=== PATIENT | female | born 2000 | race Caucasian/White ===

== ENCOUNTER 2019-08-20 18:06 | Emergency (ER) | payer OTHER ==
[2019-08-20] MEDS ORDERED: ONDANSETRON HCL INJ/PF 4 MG/2 ML SDV IV ONE ×2 (18:20→20:45)
[2019-08-20] MEDS ORDERED: NORMAL SALINE 1000 ML 1,000 ML IV ONE (18:20)
--- NOTE | 2019-08-20 18:22 | ER Document Report ---
ED Medical Screen (RME) - General Chief Complaint: Upper Abdominal Pain Stated Complaint: ABDOMINAL PAIN/8 WEEKS Time Seen by Provider: 08/20/19 18:19 Notes: HPI: 19-year-old female who is approximately 9 weeks by igor hull for evaluation of nausea vomiting and pelvic pain. No vaginal bleeding. Has had vaginal discharge. Has not yet seen JAVA DEVELOPER WITH [employer] for evaluation of the . States throughout the she has been having issues with nausea vomiting states it has been worse in the last 3 days where she is throwing up at least 5 times a day and unable to keep anything down. Patient reports left pelvic pain that began today. I have greeted and performed a rapid initial assessment of this patient. A comprehensive ED assessment and evaluation of the patient, analysis of test results and completion of the medical decision making process will be conducted by additional ED providers PHYSICAL EXAMINATION: Mild tenderness in the left pelvis on palpation. Appears mildly dehydrated and pale. Mildly tachycardic. I have greeted and performed a rapid initial assessment of this patient. A comprehensive ED assessment and evaluation of the patient, analysis of test results and completion of medical decision making process will be conducted by an additional ED providers. - Related Data Allergies/Adverse Reactions: No Known Allergies Allergy (Unverified 08/20/19 18:14) Home Medications: pnv, b6, unasom, escitalopram, trazadone Past Medical History - Social History Chew tobacco use (# tins/day): No Frequency of alcohol use: None Drug Abuse: None Physical Exam - Vital signs Vitals: Temp Pulse Resp BP Pulse Ox 98.7 F 106 H 20 120/70 100 08/20/19 18:08/20/19 18:08/20/19 18:08/20/19 18:08/20/19 18:09 Course - Vital Signs Vital signs: Temp Pulse Resp BP Pulse Ox 98.7 F 106 H 20 120/70 100 08/20/19 18:08/20/19 18:08/20/19 18:08/20/19 18:08/20/19 18:09
[2019-08-20 18:47] LABS: APPEARANCE,URINE SLIGHTLY-CLOUDY; BILIRUBIN,URINE NEGATIVE (NEGATIVE); COLOR,URINE YELLOW; GLUCOSE, URINE NEGATIVE (NEGATIVE); KETONES,URINE 20 mg/dL (NEGATIVE); LEUKOCYTE ESTERASE,URINE NEGATIVE (NEGATIVE); NITRITE,URINE NEGATIVE (NEGATIVE); PROTEIN,URINE 30 mg/dL (NEGATIVE); URINE SPECIFIC GRAVITY 1.021; UROBILINOGEN,URINE NEGATIVE mg/dL (<2.0)
--- NOTE | 2019-08-20 19:14 | ER Document Report ---
Entered by ANA RICHARD SCRIBE 08/20/19 1854 Acting as scribe for:KORTNEY LUONG DO ED GI/ - General Chief Complaint: Upper Abdominal Pain Stated Complaint: ABDOMINAL PAIN/8 WEEKS Time Seen by Provider: 08/20/19 18:19 Mode of Arrival: Ambulatory Information source: Patient Notes: This 19 year old female, G1, P0, approximately x9 weeks presents to the ED today with complaints of nausea/vomiting with associated LUQ pain that started prior to arrival today. Patient also notes left mid-lower back pain. She states that she has been having nausea/vomiting throughout the , but states that it has been worse these last x3 days where she is throwing up at least x5 times a day. She states that she is unable to keep anything down and th at she vomited x2 more times en route to the ED. She reports that she was advised to come to the ED if she had abdominal pain worse on one side, so she decided to come to the ED. She hasn't been seen by FUNERAL ARRANGEMENT DIRECTOR for evaluation of the yet, but states that she has an appointment with [facility] on 08/29/19. She denies vaginal bleeding, spotting, cramping, dysuria, or burning with urination. She reports a history of anxiety/depression and a family history of anemia. Denies cardiac history, respiratory history, or thyroid issues. Denies tobacco, ETOH, or recreational drug use. - Related Data Allergies/Adverse Reactions: No Known Allergies Allergy (Unverified 08/20/19 18:14) Home Medications: pnv, b6, unasom, escitalopram, trazadone Past Medical History - General Information source: Patient - Social History Smoking Status: Never Smoker Cigarette use (# per day): No Chew tobacco use (# tins/day): No Smoking Education Provided: No Frequency of alcohol use: None Drug Abuse: None Lives with: Spouse/Significant other Family History: Reviewed & Not Pertinent, Other - Anemia Patient has suicidal ideation: No Patient has homicidal ideation: No Psychiatric Medical History: Reports: Hx Anxiety, Hx Depression Surgical Hx: Negative Review of Systems - Review of Systems Constitutional: No symptoms reported EENT: No symptoms reported Cardiovascular: No symptoms reported Respiratory: No symptoms reported Gastrointestinal: See HPI, Abdominal pain, Nausea, Vomiting Genitourinary: See HPI. denies: Burning, Dysuria Female Genitourinary: See HPI, - approximaltey x9 weeks. denies: Vaginal bleeding Musculoskeletal: See HPI, Back pain Skin: No symptoms reported Hematologic/Lymphatic: No symptoms reported Neurological/Psychological: No symptoms reported -: Yes All other systems reviewed and negative Physical Exam - Vital signs Vitals: Temp Pulse Resp BP Pulse Ox 98.7 F 106 H 20 120/70 100 08/20/19 18:09 08/20/19 18:09 08/20/19 18:09 08/20/19 18:09 08/20/19 18:09 - General General appearance: Alert In distress: None - HEENT Head: Normocephalic, Atraumatic Eyes: Normal Pupils: PERRL Mucous membranes: Dry - Mildly - Respiratory Respiratory status: No respiratory distress Chest status: Nontender Breath sounds: Normal Chest palpation: Normal - Cardiovascular Rhythm: Regular Heart sounds: Normal auscultation Murmur: No Friction rub: No Gallop: None auscultated - Abdominal Inspection: Normal Distension: No distension Bowel sounds: Normal Tenderness: Tender - LUQ tenderness to palpation, Other - Abdomen soft Organomegaly: No organomegaly - Back Back: Tender - Mild paraspinal tenderness to palpation - Extremities General upper extremity: Normal inspection General lower extremity: Normal inspection - Neurological Neuro grossly intact: Yes - Psychological Associated symptoms: Normal affect, Normal mood - Skin Skin Temperature: Warm Skin Moisture: Dry Skin Color: Normal Course - Re-evaluation Re-evalutation: 08/21/19 00:37 MDM 19 year old primagravida is here with lower abd pain and nausea and vomiting. Feels better here after ivf and zofran. She has fu with OB 08/28. She'd like to have pelvic there rather than here. Discussed pelvic rest and keeping follow up and she expressed understanidng. - Vital Signs Vital signs: Temp Pulse Resp BP Pulse Ox 98.7 F 106 H 20 120/70 100 08/20/19 18:09 08/20/19 18:09 08/20/19 18:09 08/20/19 18:09 08/20/19 18:09 - Laboratory Result Diagrams: 08/20/19 21:52 08/20/19 21:52 Laboratory results interpreted by me: 04/08/20/19 08/20/19 18:21 21:52 21:52 Hgb 9.9 L Hct 31.1 L MCV 65 L MCH 20.7 L MCHC 31.8 L RDW 18.1 H Band Neutrophils % 1 L Sodium 135.3 L Creatinine 0.42 L Beta HCG, Quant 304504.00 H Urine Protein 30 H Urine Ketones 20 H - Diagnostic Test Radiology reviewed: Reports reviewed Discharge - Discharge Clinical Impression: Early stage of Anemia Qualifiers: Anemia type: iron deficiency Iron deficiency anemia type: unspecified iron deficiency Qualified Code(s): D50.9 - Iron deficiency anemia, unspecified Condition: Good Disposition: HOME, SELF-CARE Instructions: Pelvic Pain in ([facility]), ([facility]) Additional Instructions: Keep your follow up appointment 08/28. Continue the vitamins. Return here for any problems or concerns. Take tylenol as needed for pain. Pelvic rest - no sexual intercourse until your ob visit and they say that it is ok. Take the anti nausea medicine as needed for nausea. Prescriptions: Ondansetron [Zofran Odt 4 mg Tablet] 1 - 2 tab PO Q4H PRN #15 tab.rapdis PRN Reason: For Nausea/Vomiting I personally performed the services described in the documentation, reviewed and edited the documentation which was dictated to the scribe in my presence, and it accurately records my words and actions.
--- NOTE | 2019-08-20 19:56 | RADIOLOGY REPORT (SQ) ---
EXAM DESCRIPTION: U/S OB TRANSVAG W/DOPPLER IMAGES COMPLETED DATE/TIME: 08/20/2019 6:31 pm REASON FOR STUDY: left pelvic pain. . LMP 06/22/2019. COMPARISON: None. TECHNIQUE: Transabdominal and transvaginal static and realtime grayscale images acquired of the pelv is. Additional selected spectral and color Doppler images recorded. All images stored on PACs. bHCG: Pending CLINICAL DATES: Estimated date of delivery based on LMP 03/28/2020. Estimated gestational age based on LMP 8 weeks 3 days. LIMITATIONS: None. FINDINGS: FETUS: Single Living intrauterine . ULTRASOUND EGA: 9 weeks 2 days ULTRASOUND MARIJA: 03/22/2020 EFW: Not applicable less than 20 weeks. CRL: 2.6 cm FHR: 173 beats per minute. SURVEY: No visualized anomalies. AMNIOTIC FLUID: Adequate amount. PLACENTA: Not yet developed due to early gestation. SUBCHORIONIC BLEED: Small subchorionic hemorrhage along the inferior margin. SIZE OF BLEED: Small UTERUS: No masses. No anomalies. CERVICAL LENGTH: 2.2 cm Closed. RIGHT ADNEXA: Normal ovary with normal vascular flow. No adnexal free fluid. No adnexal masses. LEFT ADNEXA: Normal ovary with normal vascular flow. No adnexal free fluid. No adnexal masses. FREE FLUID: None. OTHER: There is an oval cystic structure along the left side of the gestational sac with a small echo genic border which may represent an involuting 2nd gestational sac or possibly continuation of the ad jacent subchorionic hemorrhage. IMPRESSION: 1. Single live intrauterine . EGA 9 weeks 2 days 2. Small subchorionic hemorrhage. 3. Small cystic structure adjacent to the subchorionic hemorrhage and to the left of the existing ges tational sac may represent an involuting 2nd gestational sac or possibly continuation with the adjace nt subchorionic hemorrhage. Attention on follow-up imaging recommended. Trimester of : First trimester - 0 to 13 weeks. TECHNICAL DOCUMENTATION: JOB ID: [id number] [employer]- All Rights Reserved rev-09/23 Reading location - IP/workstation name: [email or web address]
[2019-08-20 22:17] LABS: HEMATOCRIT 31.1 % (36.0-47.0); HEMOGLOBIN 9.9 g/dL (12.0-15.5); MEAN CORPUSCULAR HEMOGLOBIN 20.7 pg (27.0-33.4); MEAN CORPUSCULAR HGB CONC 31.8 g/dL (32.0-36.0); MEAN CORPUSCULAR VOLUME 65 fl (80-97); PLATELET COUNT 151 10^3/uL (150-450); RED BLOOD COUNT 4.77 10^6/uL (3.72-5.28); RED CELL DISTRIBUTION WIDTH 18.1 % (11.5-14.0); WHITE BLOOD COUNT 8.2 10^3/uL (4.0-10.5)
[2019-08-20 22:30] LABS: ALBUMIN 3.8 g/dL (3.5-5.0); ALKALINE PHOSPHATASE 49 U/L (38-126); ANION GAP 6 (5-19); ASPARTATE AMINO TRANSFERASE 23 U/L (14-36); BILIRUBIN,TOTAL 0.5 mg/dL (0.2-1.3); BLOOD UREA NITROGEN 8 mg/dL (7-20); CALCIUM 8.9 mg/dL (8.4-10.2); CARBON DIOXIDE 22 mmol/L (22-30); CHLORIDE 107 mmol/L (98-107); GLUCOSE 107 mg/dL (75-110); POTASSIUM 3.8 mmol/L (3.6-5.0); TOTAL PROTEIN 6.6 g/dL (6.3-8.2)
[2019-08-20 22:52] LABS: ABSOLUTE LYMPHOCYTES# (MANUAL) 1.6 10^3/uL (0.5-4.7); ABSOLUTE MONOCYTES # (MANUAL) 0.4 10^3/uL (0.1-1.4); BAND NEUTROPHILS % (MANUAL) 1 % (3-5); BASOPHILS % (MANUAL) 0 % (0-2); EOSINOPHILS % (MANUAL) 3 % (0-6); LYMPHOCYTES % (MANUAL) 19 % (13-45); MONOCYTES % (MANUAL) 5 % (3-13); SEGMENTED NEUTROPHILS % (MAN) 72 % (42-78); TOTAL CELLS COUNTED 100
[2019-08-20 23:02] LABS: ANISOCYTOSIS 2+; OVALOCYTES 1+
[2019-08-20 23:03] LABS: HYPOCHROMASIA 3+; PLATELET COMMENT DECREASED; POLYCHROMASIA SLIGHT
[2019-08-20 23:10] LABS: SCHISTOCYTES SLIGHT
[2019-08-21 01:07] VITALS: BP 111/51
== END 2019-08-21 01:07 | disposition home or self-care (01) ==
LOC: ER 18:06
DX: O99.011 Anemia complicating pregnancy, first trimester (principal); O21.9 Vomiting of pregnancy, unspecified; O26.891 Other specified pregnancy related conditions, first trimester; R10.10 Upper abdominal pain, unspecified; M54.5 Low back pain; Z3A.08 8 weeks gestation of pregnancy; Z79.899 Other long term (current) drug therapy
CPT/HCPCS: 99284; 96361; 96374; 86900; 86901; 36415; 84702; 85025; 80053; 81001; 76817; 93976; J2405; J7030

== ENCOUNTER 2019-10-31 19:01 | Emergency (ER) | payer OTHER ==
[2019-10-31 19:14] VITALS: BP 113/52
[2019-10-31] MEDS ORDERED: ONDANSETRON HCL INJ/PF 4 MG/2 ML SDV IV ONE (21:03)
[2019-10-31] MEDS ORDERED: NORMAL SALINE 1000 ML 1,000 ML IV ONE (21:04)
[2019-10-31] MEDS ORDERED: FAMOTIDINE INJ/PF 20 MG/2 ML SDV IV ONE (21:04)
--- NOTE | 2019-10-31 21:07 | ER Document Report ---
ED General - General Chief Complaint: Chest Pain Stated Complaint: CHEST PAIN/SHORTNESS OF BREATH/VOMITING WITH BLOOD Time Seen by Provider: 10/31/19 20:21 Mode of Arrival: Ambulatory Information source: Patient TRAVEL OUTSIDE OF THE [place] IN LAST 30 DAYS: No - HPI Onset: Other - over the last several days Onset/Duration: Gradual Quality of pain: Burning Severity: Moderate Pain Level: 4 Associated symptoms: Nausea, Vomiting, Shortness of breath, Other - Abdominal Pain Exacerbated by: Other - Throwing up makes the chest pain worse Relieved by: Denies Similar symptoms previously: No Recently seen / treated by doctor: No Notes: 19 year old female who is 19 weeks and 4 days here in the ER for chest pains, nausea, vomiting, and abdominal pains for the last several days with mild shortness of breath. The patient was recently seen by her PACKER Doctor who told her these symptoms are typical in . The patient denies any recent fevers, chills, sweats, sick contacts, recent travel. The patient has not tried any over the counter medications. - Related Data Allergies/Adverse Reactions: No Known Allergies Allergy (Unverified 08/20/19 18:14) Past Medical History - General Information source: Patient - Social History Smoking Status: Never Smoker Frequency of alcohol use: None Drug Abuse: None Family History: Reviewed & Not Pertinent, Other - Anemia Patient has suicidal ideation: No Patient has homicidal ideation: No Psychiatric Medical History: Reports: Hx Anxiety, Hx Depression Review of Systems - Review of Systems Constitutional: No symptoms reported EENT: No symptoms reported Cardiovascular: Chest pain Respiratory: No symptoms reported Gastrointestinal: Abdominal pain, Nausea, Vomiting Genitourinary: No symptoms reported Female Genitourinary: No symptoms reported Musculoskeletal: No symptoms reported Skin: No symptoms reported Hematologic/Lymphatic: No symptoms reported Neurological/Psychological: No symptoms reported -: Yes All other systems reviewed and negative Physical Exam - Vital signs Vitals: Temp Pulse Resp BP Pulse Ox 98.6 F 95 20 113/52 L 100 10/31/19 19:10 10/31/19 19:10 10/31/19 19:10 10/31/19 19:10 10/31/19 19:10 - Notes Notes: GENERAL: Well-appearing, well-nourished and in no acute distress. HEAD: Atraumatic, normocephalic. EYES: Pupils equal round and reactive to light, extraocular movements intact, sclera anicteric, conjunctiva are normal. ENT: External ears normal, nares patent, oropharynx clear without exudates. Moist mucous membranes. NECK: Normal range of motion, supple without lymphadenopathy or JVD. LUNGS: Breath sounds clear to auscultation bilaterally and equal. No wheezes rales or rhonchi. HEART: Regular rate and rhythm without murmurs, rubs or gallops. ABDOMEN: Soft, nontender, normoactive bowel sounds. No guarding, no rebound. No masses appreciated. EXTREMITIES: Normal range of motion, no pitting or edema. No clubbing or cyanosis. NEUROLOGICAL: Cranial nerves II through XII grossly intact. Normal speech, normal gait. PSYCH: Normal mood, normal affect. SKIN: Warm, Dry, normal turgor, no rashes or lesions noted. Course - Re-evaluation Re-evalutation: 11/01/19 05:31 The patient apparently signed out against medical advice after I saw and evaluated her and entered labs for her work up. Nursing staff went over the risks and benefits of signing out AMA with the patient. The patient told nursing staff she would just follow up with her PACKER Doctor. The patient likely is having chest pains and abdominal pains from vomiting so much. My plan was for treatment ofher symptoms and re-evalution of her after labs results and after treatment but the patient signed out AMA. - Vital Signs Vital signs: Temp Pulse Resp BP Pulse Ox 98.6 F 95 20 113/52 L 100 10/31/19 19:10 10/31/19 19:10 10/31/19 19:10 10/31/19 19:10 10/31/19 19:10 Discharge - Discharge Clinical Impression: Chest pain Qualifiers: Chest pain type: unspecified Qualified Code(s): R07.9 - Chest pain, unspecified Nausea & vomiting Qualifiers: Vomiting type: unspecified Vomiting Intractability: unspecified Qualified Code(s): R11.2 - Nausea with vomiting, unspecified Condition: Stable Disposition: AGAINST MEDICAL ADVICE
--- NOTE | 2019-11-01 09:58 | EKG REPORT ---
SEVERITY:- OTHERWISE NORMAL ECG - SINUS TACHYCARDIA : Confirmed by: April Calderon 01-Nov-2019 09:58:25
== END 2019-10-31 21:56 | disposition left against medical advice (07) ==
LOC: ER 19:01
DX: O26.892 Other specified pregnancy related conditions, second trimester (principal); R07.9 Chest pain, unspecified; R06.02 Shortness of breath; R10.9 Unspecified abdominal pain; O99.612 Diseases of the digestive system complicating pregnancy, second trimester; K92.0 Hematemesis; Z3A.19 19 weeks gestation of pregnancy; Z53.29 Procedure and treatment not carried out because of patient's decision for other reasons
CPT/HCPCS: 93005; 93010; 99281

== ENCOUNTER 2020-01-05 19:48 | Outpatient (CLI) | payer OTHER ==
[2020-01-05 20:42] LABS: EPITHELIALS (WET MOUNT) 4+ EPITHELIALS SEEN; RBCS (WET MOUNT) 4+ RBCS SEEN; T.VAGINALIS (WET MOUNT) NO TRICHOMONAS SEEN; WBCS (WET MOUNT) 1+ WBCS SEEN; YEAST (WET MOUNT) NO YEAST SEEN
[2020-01-05 20:46] LABS: APPEARANCE,URINE CLOUDY; BILIRUBIN,URINE NEGATIVE (NEGATIVE); COLOR,URINE YELLOW; GLUCOSE, URINE NEGATIVE (NEGATIVE); KETONES,URINE NEGATIVE (NEGATIVE); LEUKOCYTE ESTERASE,URINE SMALL (NEGATIVE); NITRITE,URINE NEGATIVE (NEGATIVE); PROTEIN,URINE NEGATIVE (NEGATIVE); URINE SPECIFIC GRAVITY 1.015; UROBILINOGEN,URINE NEGATIVE mg/dL (<2.0)
[2020-01-05 21:01] LABS: URINE AMPHETAMINES SCREEN NEGATIVE; URINE BARBITURATES SCREEN NEGATIVE; URINE BENZODIAZEPINES SCREEN NEGATIVE; URINE COCAINE SCREEN NEGATIVE; URINE MARIJUANA (THC) SCREEN NEGATIVE; URINE METHADONE SCREEN NEGATIVE; URINE PHENCYCLIDINE SCREEN NEGATIVE
[2020-01-05 21:22] LABS: BACTERIA (WET MOUNT) 3+ BACTERIA SEEN; EPITHELIALS (WET MOUNT) 4+ EPITHELIALS SEEN; RBCS (WET MOUNT) NO RBCS SEEN; T.VAGINALIS (WET MOUNT) NO TRICHOMONAS SEEN; WBCS (WET MOUNT) 4+ WBCS SEEN; YEAST (WET MOUNT) NO YEAST SEEN
--- NOTE | 2020-01-05 21:54 | RADIOLOGY REPORT (SQ) ---
Obstetric ultrasound: 01/05/2020 8:49 PM CDT HISTORY: 19-year-old female with concern for cervical length. TECHNIQUE: Multiple grayscale and color Doppler images of the pelvis were obtained transabdominally. COMPARISON: Pelvic ultrasound from 08/20/2019 FINDINGS: A single intrauterine gestation is seen, which is cephalic in position. The cervix measures at least 2.9 cm in length. The placenta is anterior in location, and free of internal os of the cervix. The estimated heart rate is approximately 130 bpm. The SOPHIE measures 16.6 cm, with the deepest vertical pocket of approximately 4.9 cm. The following measurements were obtained: BPD: 7.5 cm, consistent with 30 weeks and 0 day(s). HC: 27.9 cm, consistent with 30 weeks and 3 day(s). AC: 27.0 cm, consistent with 31 weeks and 0 day(s). FL: 5.5 cm, consistent with 29 weeks and 1 day(s). The estimated weight is approximately 1553 g +/- 15%. The fetus overall measures at the 65%. The fetus measures at 30 weeks and 1 day(s) by AUA, consistent with an estimated due date of 03/14/20. This is different than the prior estimated due date of 03/22/2020 IMPRESSION: A single, live intrauterine gestation is seen which is currently cephalic in position. The fetus measures at 30 weeks and 1 day(s) by AUA, consistent with an estimated due date of 03/14/20. 2.Detailed anatomic assessment was not performed. 3. The cervix measures at least 2.9 cm in length. Interval follow-up with an obstetric care provider is recommended.
[2020-01-05] MEDS ORDERED: METRONIDAZOLE 500 MG TABLET PO ONE (21:58)
[2020-01-05] MEDS ORDERED: METRONIDAZOLE 500 MG TABLET ONE (22:02)
== END 2020-01-05 22:14 | disposition home or self-care (01) ==
LOC: LC 19:48
PROVIDERS: ATTEND Obstetrics & Gynecology
DX: O23.593 Infection of other part of genital tract in pregnancy, third trimester (principal); B96.89 Other specified bacterial agents as the cause of diseases classified elsewhere; Z3A.29 29 weeks gestation of pregnancy
CPT/HCPCS: 76815; 80307; 81001; 87210

== ENCOUNTER 2020-01-17 17:22 | Outpatient (CLI) | payer OTHER ==
[2020-01-17] MEDS ORDERED: HYDROXYZINE PAMOATE 50 MG CAPSULE PO ONE (18:08)
[2020-01-17] MEDS ORDERED: HYDROXYZINE PAMOATE 50 MG CAPSULE ONE (18:10)
[2020-01-17 18:45] LABS: APPEARANCE,URINE SLIGHTLY-CLOUDY; BILIRUBIN,URINE NEGATIVE (NEGATIVE); COLOR,URINE YELLOW; GLUCOSE, URINE NEGATIVE (NEGATIVE); KETONES,URINE NEGATIVE (NEGATIVE); LEUKOCYTE ESTERASE,URINE TRACE (NEGATIVE); NITRITE,URINE NEGATIVE (NEGATIVE); PROTEIN,URINE NEGATIVE (NEGATIVE); URINE SPECIFIC GRAVITY 1.018; UROBILINOGEN,URINE NEGATIVE mg/dL (<2.0)
[2020-01-17 18:51] LABS: URINE AMPHETAMINES SCREEN NEGATIVE; URINE BARBITURATES SCREEN NEGATIVE; URINE BENZODIAZEPINES SCREEN NEGATIVE; URINE COCAINE SCREEN NEGATIVE; URINE MARIJUANA (THC) SCREEN NEGATIVE; URINE METHADONE SCREEN NEGATIVE; URINE PHENCYCLIDINE SCREEN NEGATIVE
== END 2020-01-17 18:15 | disposition home or self-care (01) ==
LOC: LC 17:22
PROVIDERS: ATTEND Obstetrics & Gynecology Gynecology
DX: O26.893 Other specified pregnancy related conditions, third trimester (principal); R10.9 Unspecified abdominal pain; Z3A.30 30 weeks gestation of pregnancy
CPT/HCPCS: 80307; 81001

== ENCOUNTER 2020-01-28 19:21 | Outpatient (CLI) | payer OTHER ==
--- NOTE | 2020-01-28 21:19 | Non Stress Test Report ---
Non Stress Test Datetime Report Generated by CPN: 01/28/2020 21:19 DEMOGRAPHIC EGA NST: 32.2 INDICATION Indication for Study (NST) Other: lc for reduced movement VITAL SIGNS Temperature - NST: 97.9 Pulse - NST: 105 RESP - NST: 17 NBPSYS NST: 108 NBPDIA NST: 57 MONITORING Monitor Explained: Monitor Explained; Test Explained; Patient Verbalized Understanding Time on Monitor: 01/28/2020 19:35 Time off Monitor: 01/28/2020 20:27 NST Duration: 52 NST INTERVENTIONS NST Interventions: PO Hydration; Reposition Patient Physician Notified NST: Dr Guerrero BABY A: [id number] BABY A Movement : Present Contraction Frequency : 0 FHR Baseline : 135 Accelerations : 15X15 Decelerations : None Variability : Moderate 6-25bpm NST Review: Meets Criteria for Reactive NST NST Review and Verified By : LILI Buenrostro Results: Reactive NST REPORT Report Trigger: Send Report
== END 2020-01-28 21:11 | disposition home or self-care (01) ==
LOC: LC 19:21
PROVIDERS: ATTEND Obstetrics & Gynecology Gynecology
DX: O36.8130 Decreased fetal movements, third trimester, not applicable or unspecified (principal); Z3A.32 32 weeks gestation of pregnancy
CPT/HCPCS: 59025

== ENCOUNTER 2020-03-07 22:44 | Outpatient (CLI) | payer OTHER ==
[2020-03-07 23:08] LABS: APPEARANCE,URINE CLOUDY; BILIRUBIN,URINE NEGATIVE (NEGATIVE); COLOR,URINE YELLOW; GLUCOSE, URINE NEGATIVE (NEGATIVE); KETONES,URINE NEGATIVE (NEGATIVE); LEUKOCYTE ESTERASE,URINE LARGE (NEGATIVE); NITRITE,URINE NEGATIVE (NEGATIVE); PROTEIN,URINE NEGATIVE (NEGATIVE); URINE SPECIFIC GRAVITY 1.008; UROBILINOGEN,URINE NEGATIVE mg/dL (<2.0)
[2020-03-07 23:29] LABS: URINE AMPHETAMINES SCREEN NEGATIVE; URINE BARBITURATES SCREEN NEGATIVE; URINE BENZODIAZEPINES SCREEN NEGATIVE; URINE COCAINE SCREEN NEGATIVE; URINE MARIJUANA (THC) SCREEN NEGATIVE; URINE METHADONE SCREEN NEGATIVE; URINE PHENCYCLIDINE SCREEN NEGATIVE
[2020-03-08 00:14] LABS: ABSOLUTE EOSINOPHILS # (AUTO) 0.1 10^3/uL (0.0-0.6); ABSOLUTE LYMPHOCYTES (AUTO) 1.3 10^3/uL (0.5-4.7); ABSOLUTE MONOCYTES (AUTO) 0.7 10^3/uL (0.1-1.4); ABSOLUTE NEUT (AUTO) 7.2 10^3/uL (1.7-8.2); BASOPHILS % (AUTO) 0.5 % (0-2); EOSINOPHILS % (AUTO) 1.3 % (0-6); HEMATOCRIT 36.5 % (36.0-47.0); HEMOGLOBIN 12.2 g/dL (12.0-15.5); LYMPHOCYTES % (AUTO) 13.9 % (13-45); MEAN CORPUSCULAR HEMOGLOBIN 28.9 pg (27.0-33.4); MEAN CORPUSCULAR HGB CONC 33.5 g/dL (32.0-36.0); MEAN CORPUSCULAR VOLUME 86 fl (80-97); MONOCYTES % (AUTO) 7.2 % (3-13); PLATELET COUNT 234 10^3/uL (150-450); RED BLOOD COUNT 4.23 10^6/uL (3.72-5.28); RED CELL DISTRIBUTION WIDTH 14.9 % (11.5-14.0); SEGMENTED NEUTROPHILS % (AUTO) 77.1 % (42-78); TOTAL CELLS COUNTED % (AUTO) 100 %; WHITE BLOOD COUNT 9.3 10^3/uL (4.0-10.5)
[2020-03-08 00:28] LABS: INTERNATIONAL RATION (INR) 0.95; PROTHROMBIN TIME 12.9 SEC (11.4-15.4)
--- NOTE | 2020-03-08 00:28 | RADIOLOGY REPORT (SQ) ---
EXAM DESCRIPTION: US LIMITED COMPLETED DATE/TME: 03/07/2020 00:00 CLINICAL HISTORY: 19 years Female, abd trauma - abruption COMPARISON: 01/05/2020 TECHNIQUE: Limited greater than 14 week obstetrical ultrasound for desired parameters. Findings: SOPHIE: 8.9 cm Placenta: Anterior. No definite evidence of placental abruption on provided images. Grade 2 placenta. Cervical length: Not visualized presentation: Vertex heart rate: 141 bpm. Impression: 1. No definite evidence of placental abruption on provided images. 2. Single live intrauterine with heart rate of 141 bpm.
[2020-03-08 00:29] LABS: FIBRINOGEN 589 mg/dL (209-497); PARTIAL THROMBOPLASTIN TIME 25.2 SEC (23.5-35.8)
[2020-03-08 00:39] LABS: ALBUMIN 3.4 g/dL (3.5-5.0); ALKALINE PHOSPHATASE 132 U/L (38-126); ANION GAP 6 (5-19); ASPARTATE AMINO TRANSFERASE 16 U/L (14-36); BILIRUBIN,DIRECT 0.1 mg/dL (0.0-0.4); BILIRUBIN,TOTAL 0.6 mg/dL (0.2-1.3); BLOOD UREA NITROGEN 8 mg/dL (7-20); CALCIUM 9.8 mg/dL (8.4-10.2); CARBON DIOXIDE 25 mmol/L (22-30); CHLORIDE 105 mmol/L (98-107); GLUCOSE 95 mg/dL (75-110); POTASSIUM 4.9 mmol/L (3.6-5.0)
[2020-03-08 03:29] LABS: RHOGAM DOSE INDICATED 0 VIAL(S)
== END 2020-03-08 04:00 | disposition home or self-care (01) ==
LOC: LC 22:44
PROVIDERS: ATTEND Student in an Organized Health Care Education/Training Program
DX: O26.893 Other specified pregnancy related conditions, third trimester (principal); R10.9 Unspecified abdominal pain; O36.8130 Decreased fetal movements, third trimester, not applicable or unspecified; Z3A.37 37 weeks gestation of pregnancy; Z02.83 Encounter for blood-alcohol and blood-drug test
CPT/HCPCS: 36415; 59025; 76815; 80053; 80307; 81005; 85025; 85384; 85460; 85610; 85730

== ENCOUNTER 2020-03-13 07:50 | Outpatient (CLI) | payer OTHER ==
--- NOTE | 2020-03-13 08:00 | Non Stress Test Report ---
Non Stress Test Datetime Report Generated by CPN: 03/13/2020 08:00 DEMOGRAPHIC EGA NST: 37.6 INDICATION Indication for Study (NST) Other: labor check URINE RESULTS Urine Protein, NST: Negative Urine Ketones - NST: Negative Urine Glucose - NST: Negative Urine Blood - NST: Positive MONITORING Time on Monitor: 03/07/2020 23:00 Time off Monitor: 03/08/2020 03:54 NST Duration: 294 NST INTERVENTIONS NST Interventions: PO Hydration Physician Notified NST: Guillen BABY A: [id number] BABY A Movement : Present Contraction Frequency : irregular FHR Baseline : 135 Accelerations : 15X15 Decelerations : None Variability : Moderate 6-25bpm NST Review: Meets Criteria for Reactive NST NST Review and Verified By : LILI Childress NST Results: Reactive NST REPORT Report Trigger: Send Report
--- NOTE | 2020-03-13 08:52 | Non Stress Test Report ---
Non Stress Test Datetime Report Generated by CPN: 03/13/2020 08:52 DEMOGRAPHIC EGA NST: 38.5 INDICATION Indication for Study (NST) Other: IUP at 38.5 VITAL SIGNS Temperature - NST: 98.7 Pulse - NST: 117 RESP - NST: 18 NBPSYS NST: 127 NBPDIA NST: 70 MONITORING Monitor Explained: Monitor Explained; Test Explained; Patient Verbalized Understanding Time on Monitor: 03/13/2020 08:07 Time off Monitor: 03/13/2020 08:37 NST Duration: 30 NST INTERVENTIONS NST Interventions: PO Hydration Physician Notified NST: A. Rios, CNM BABY A Movement : Present Contraction Frequency : Irreg FHR Baseline : 145 Accelerations : 15X15 Decelerations : None Variability : Moderate 6-25bpm NST Review: Meets Criteria for Reactive NST NST Review and Verified By : Leopoldo Slaughter RN NST Results: Reactive NST REPORT Report Trigger: Send Report
[2020-03-13 09:40] LABS: APPEARANCE,URINE SLIGHTLY-CLOUDY; BILIRUBIN,URINE NEGATIVE (NEGATIVE); COLOR,URINE YELLOW; GLUCOSE, URINE NEGATIVE (NEGATIVE); KETONES,URINE TRACE mg/dL (NEGATIVE); LEUKOCYTE ESTERASE,URINE TRACE (NEGATIVE); NITRITE,URINE NEGATIVE (NEGATIVE); PROTEIN,URINE 30 mg/dL (NEGATIVE); URINE SPECIFIC GRAVITY 1.023; UROBILINOGEN,URINE NEGATIVE mg/dL (<2.0)
[2020-03-13 10:05] LABS: URINE AMPHETAMINES SCREEN NEGATIVE; URINE BARBITURATES SCREEN NEGATIVE; URINE BENZODIAZEPINES SCREEN NEGATIVE; URINE COCAINE SCREEN NEGATIVE; URINE MARIJUANA (THC) SCREEN NEGATIVE; URINE METHADONE SCREEN NEGATIVE; URINE PHENCYCLIDINE SCREEN NEGATIVE
== END 2020-03-13 09:37 | disposition home or self-care (01) ==
LOC: LC 07:50
PROVIDERS: ATTEND Obstetrics & Gynecology
DX: O47.1 False labor at or after 37 completed weeks of gestation (principal); Z3A.38 38 weeks gestation of pregnancy
CPT/HCPCS: 59025; 80307; 81005

== ENCOUNTER 2020-03-19 16:12 | Inpatient (IN) | payer OTHER ==
[2020-03-19] MEDS ORDERED: RINGERS SOLUTION,LACTATED 1,000 ML IV ONE (17:52)
[2020-03-19] MEDS ORDERED: RINGERS SOLUTION,LACTATED 1,000 ML IV PRN (17:52)
[2020-03-19] MEDS ORDERED: OXYTOCIN 10 UNIT/ML VIAL ONE (17:53)
[2020-03-19] MEDS ORDERED: OXYTOCIN/0.9 % SODIUM CHLORIDE 30 UNIT/500 ML RTUINJ ONE (17:53)
[2020-03-19] MEDS ORDERED: MISOPROSTOL 0.2 MG TABLET ONE (17:53)
[2020-03-19] MEDS ORDERED: LIDOCAINE 1% INJ-PF (10 MG/ML) 30 ML SDV ONE (17:53)
[2020-03-19] MEDS ORDERED: NALBUPHINE HCL INJ 10 MG/1 ML AMPULE ONE (17:54)
[2020-03-19] MEDS ORDERED: ONDANSETRON HCL INJ/PF 4 MG/2 ML SDV ONE (17:55)
[2020-03-19 18:24] LABS: APPEARANCE,URINE CLOUDY; BILIRUBIN,URINE NEGATIVE (NEGATIVE); COLOR,URINE AMBER; GLUCOSE, URINE NEGATIVE (NEGATIVE); KETONES,URINE TRACE mg/dL (NEGATIVE); LEUKOCYTE ESTERASE,URINE SMALL (NEGATIVE); NITRITE,URINE NEGATIVE (NEGATIVE); PROTEIN,URINE 100 mg/dL (NEGATIVE); URINE SPECIFIC GRAVITY 1.024
[2020-03-19 18:31] LABS: ABSOLUTE BASOPHILS # (AUTO) 0.1 10^3/uL (0.0-0.2); ABSOLUTE EOSINOPHILS # (AUTO) 0.1 10^3/uL (0.0-0.6); ABSOLUTE MONOCYTES (AUTO) 0.6 10^3/uL (0.1-1.4); ABSOLUTE NEUT (AUTO) 9.6 10^3/uL (1.7-8.2); BASOPHILS % (AUTO) 0.6 % (0-2); EOSINOPHILS % (AUTO) 0.5 % (0-6); HEMATOCRIT 36.6 % (36.0-47.0); HEMOGLOBIN 12.3 g/dL (12.0-15.5); LYMPHOCYTES % (AUTO) 9.1 % (13-45); MEAN CORPUSCULAR HEMOGLOBIN 28.1 pg (27.0-33.4); MEAN CORPUSCULAR HGB CONC 33.5 g/dL (32.0-36.0); MEAN CORPUSCULAR VOLUME 84 fl (80-97); PLATELET COUNT 263 10^3/uL (150-450); RED BLOOD COUNT 4.37 10^6/uL (3.72-5.28); RED CELL DISTRIBUTION WIDTH 14.5 % (11.5-14.0); SEGMENTED NEUTROPHILS % (AUTO) 84.8 % (42-78); TOTAL CELLS COUNTED % (AUTO) 100 %; WHITE BLOOD COUNT 11.4 10^3/uL (4.0-10.5)
[2020-03-19 18:44] LABS: URINE AMPHETAMINES SCREEN NEGATIVE; URINE BARBITURATES SCREEN NEGATIVE; URINE BENZODIAZEPINES SCREEN NEGATIVE; URINE COCAINE SCREEN NEGATIVE; URINE MARIJUANA (THC) SCREEN NEGATIVE; URINE METHADONE SCREEN NEGATIVE; URINE PHENCYCLIDINE SCREEN NEGATIVE
[2020-03-19] MEDS ORDERED: EPHEDRINE SULFATE INJ 50 MG/1 ML AMPULE ONE (18:57)
[2020-03-19] MEDS ORDERED: FENTANYL/BUPIVACAINE/NS/PF 300 MCG/150 ML RTUINJ EPI ONE (18:57)
[2020-03-19] MEDS ORDERED: ROPIVACAINE HCL 0.2% INJ/PF (2 MG/ML) 20 ML SDV ONE (18:58)
[2020-03-20] MEDS ORDERED: DIPHENHYDRAMINE HCL 25 MG CAPSULE PO PRN (00:34)
[2020-03-20] MEDS ORDERED: PROMETHAZINE HCL 25 MG TABLET PO PRN (00:34)
[2020-03-20] MEDS ORDERED: BENZOCAINE/MENTHOL AEROSOL SPRAY 56 ML TOP PRN (00:34)
[2020-03-20] MEDS ORDERED: NA PHOS,M-B/NA PHOS,DI-BA (ADULT) 133 ML ENEMA PR PRN (00:34)
[2020-03-20] MEDS ORDERED: ZOLPIDEM TARTRATE 5 MG TABLET PO PRN (00:34)
[2020-03-20] MEDS ORDERED: ACETAMINOPHEN 650 MG SUPP.RECT PR PRN (00:34)
[2020-03-20] MEDS ORDERED: DIBUCAINE 1% OINTMENT 28 GM TP PRN (00:34)
[2020-03-20] MEDS ORDERED: PROMETHAZINE HCL INJ 25 MG/1 ML VIAL IV PRN (00:34)
[2020-03-20] MEDS ORDERED: PSEUDOEPHEDRINE HCL 30 MG TABLET PO PRN (00:34)
[2020-03-20] MEDS ORDERED: ACETAMINOPHEN WITH CODEINE #3 TABLET PO PRN (00:34)
[2020-03-20] MEDS ORDERED: ACETAMINOPHEN 325 MG TABLET PO PRN (00:34)
[2020-03-20] MEDS ORDERED: DIPH/PERTUSS(ACELL)/TETANUS VAC/PF 0.5 ML SYR (>=10YO) IM PRN (00:34)
[2020-03-20] MEDS ORDERED: MAGNESIUM HYDROXIDE SUSP 30 ML UDCUP PO PRN (00:34)
[2020-03-20] MEDS ORDERED: PROMETHAZINE HCL 25 MG SUPP.RECT PR PRN (00:34)
[2020-03-20] MEDS ORDERED: MISOPROSTOL 0.2 MG TABLET PR PRN (00:34)
[2020-03-20] MEDS ORDERED: OXYTOCIN/0.9 % SODIUM CHLORIDE 30 UNIT/500 ML RTUINJ IV PRN (00:34)
[2020-03-20] MEDS ORDERED: GLYCERIN/WITCH HAZEL LEAF 1 EACH MED..WIPE TP PRN (00:34)
[2020-03-20] MEDS ORDERED: MEASLES,MUMPS&RUBELLA VACC/PF 0.5 ML VIAL SUBCUT PRN (00:34)
--- NOTE | 2020-03-20 00:54 | Admission Physical ---
Datetime Report Generated by CPN: 03/20/2020 00:53 CURRENT ADMISSION Hx Assessment: The History has been Reviewed and is Current Chief Complaint: Uterine Contractions Chief Complaint Other: Painful contractions. Dilated to 5 cm . Admit Impression : Term, Intrauterine Admit Plan: Admit to Unit ALLERGIES Medication Allergies: No Medication Allergies: No Known Allergies (03/19/2020) Latex: No Latex Allergies Food Allergies: pineapple OBSTETRICAL HISTORY EDC: 03/22/2020 00:00 : 1 Para: 0 Term: 0 : 0 SAB: 0 IAB: 0 Ectopic: 0 Livin Cesareans: 0 VBACs: 0 Multiple Births: 0 Gestational Diabetes: No Rh Sensitization: No Incompetent Cervix: No AFTAB: No Infertility: No ART Treatment: No Uterine Anomaly: No IUGR: No Hx Previous C/S: No Macrosomia: No Hx Loss/Stillborn: No PIH: No Hx : No Placenta Previa/Abruption: No Depression/PP Depression: Yes PTL/PROM: No Post Hemorrhage: No Current Procedures: Ultrasound Obstetrical History Comments: g1-current , subchorionic bleed, possible pupps SEE RECORDS Alcohol: No Marijuana : No Cocaine: No Other Illicit Drugs: No Cigarettes: Never Smoker. [id number] MEDICAL HISTORY Diabetes: No Blood Transfusion: No Pulmonary Disease (Asthma, TB): No Breast Disease: No Hypertension: No Head Waiter/Waitress Surgery: No Heart Disease: No Hosp/Surgery: No Autoimmune Disorder: No Anesthetic Complications: No Kidney Disease: No Abnormal Pap Smear: No Neuro/Epilepsy: No Psychiatric Disorders: No Other Medical Diseases: No Hepatitis/Liver Disease: No Significant Family History: No Varicosities/Phlebitis: No Trauma/Violence : No Thyroid Dysfunction: No Medical History Comments: depression, , h/o ringworm on left leg 12/2019 INFECTIOUS HISTORY Gonorrhea: No Genital Herpes: No Chlamydia: No Tuberculosis: No Syphilis: No Hepatitis: No HIV/AIDS Exposure: No Rash or Viral Illness: No HPV: No PHYSICAL EXAM General: Normal HEENT: Normal Neurologic: Normal Thyroid: Normal Heart: Normal Lungs: Normal Breast: Normal Back: Normal Abdomen: Normal Genitourinary Exam: Normal Extremities: Normal DTRs: Normal Pelvic Type: Adequate Vital Signs: Reviewed; Within Normal Limits VAGINAL EXAM Dilatation: 5 Effacement: 60 Station: -2 Contraction Comments: Regular MEMBRANES Membranes: Intact FETUS A EGA: 39.4 Monitoring: External US FHR- Baseline: 135 Variability: Moderate 6-25bpm Accelerations: 15X15 Decelerations: None FHR Category: Category I Presentation: Vertex Admit Comment: G1 at 39.4 wks EGA in active labor -Admit to LDR _NPO and IVFs: LR at 125 cc/hr after 1 liter bolus -CEFM and toco -GBS negative -Plans for epidural for pain mgt -Anticipate PLANS FOR LABOR AND DELIVERY Labor and Delivery: None Pain Management: Epidural Feeding Preference: Breast Circumcision: N/A INFORMED CONSENT Informed Consent Obtained: Vaginal Delivery; Section Delivery; Vacuum/Forceps Assist; Risks, Benefits and Alternatives Discussed Signature: with User ID: [email or web address] : with User ID: [email or web address]
[2020-03-20] MEDS ORDERED: IBUPROFEN 800 MG TABLET ONE (01:16)
--- NOTE | 2020-03-20 02:36 | Birth Certificate Data ---
Cert Data Datetime Report Generated by CPTeresita: 03/20/2020 02:36 CERTIFICATE DATA Delivery Provider: Rosina Forbes MD (01/05/2020 19:58:Mayte Sibley RN) 47a. Care: Yes (01/05/2020 19:58:COTY Bruce) 47b. Date of First Visit: 08/29/2019 00:00 (01/05/2020 19:58:COTY Bruce) 47c. Date of Last Visit: 03/18/2020 00:00 (01/05/2020 19:58:Jessica Escobedo RN) 47d. Number of Visits: 18 (01/05/2020 19:58:COTY Bruce) 48a. Number of Prev Live Births: 0 (01/05/2020 19:58:Jessica Escobedo RN) 48b. Now Livin (01/05/2020 19:58:Ade Childress RN) 48c. Live Births Now : 0 (01/05/2020 19:58:QS system process) 48e. Losses: 0 (01/05/2020 19:58:Jessica Feuston, RN) RISK FACTORS IN THIS 49a. Diabetes: No (01/05/2020 19:58:Leti Stephen RN) 49b. Hypertension: No (01/05/2020 19:58:Leti Stephen RN) 49c. Previous Births: 0 (01/05/2020 19:58:Ade Childress RN) 49d. Stillborns: No (01/05/2020 19:58:Leti Stephen RN) 49d. IUGR: No (01/05/2020 19:58:Leti Stephen RN) 49e. Infertility Treatment: No (01/05/2020 19:58:Leti Stephen RN) 49f. Previous Cesareans: 0 (01/05/2020 19:58:Jessica Escobedo, RN) Mother's Height 50b. Height Inches: 65 (01/17/2020 18:16:QS system process) Mother's Weight 51a. Pre- Weight (lbs): 170 (01/05/2020 19:58:Leti Stephen RN) 51b. Weight at Delivery (lbs): 207 (03/20/2020 00:29:QS system process) 52. Dt Last Normal Menses Began: 06/22/2019 00:00 (01/05/2020 19:58:Jenny Delacruz RN) Infections Present/Treated 53a. Gonorrhea: No (01/05/2020 19:58:Leti Stephen RN) Results this Hospital Visit : Negative (01/05/2020 19:58:Leti Stephen RN) 53b. Syphilis: No (01/05/2020 19:58:Leti Stephen RN) 53c. Chlamydia: No (01/05/2020 19:58:Leti Stephen RN) Results this Hospital Visit: Negative (01/05/2020 19:58:Leti Stephen RN) 53d. Hepatitis B: No (01/05/2020 19:58:Leti Stephen RN) Results this Hospital Visit: Negative (01/05/2020 19:58:Ade Childress RN) 53e. Hepatitis C: Negative (01/05/2020 19:58:Ade Childress RN) 53h. Mother Tested for HBsAG: Yes (01/05/2020 19:58:Ade Childress RN) 53i. Date Tested: 08/29/2019 00:00 (01/05/2020 19:58:Ade Childress RN) 53j. Test Result: Negative (01/05/2020 19:58:Ade Childress RN) Obstetric Procedures 54a, b, c. Obstetric Procedures: Ultrasound (01/05/2020 19:58:Ade Childress RN) Cigarette Smoking Cigarette Smoking: Never Smoker. [id number] (01/05/2020 19:58:Leti Stephen RN) 55a. 3 Months Before Preg - Ci (01/05/2020 19:58:Jessica Escobedo RN) 55b. 1st Trimester of Preg- Ci (01/05/2020 19:58:Jessica Escobedo RN) 55c. 2nd Trimester of Preg- Ci (01/05/2020 19:58:Jessica Escobedo RN) 55d. 3rd Trimester of Preg- Ci (01/05/2020 19:58:Jessica Escobedo RN) Onset of Labor 56a. PROM >12 Hrs: 3.92 (03/19/2020 19:59:QS system process) 56b. Precipitous Labor <3 Hrs: 4 (01/05/2020 19:58:QS system process) 56c. Prolonged Labor > 20 Hrs: 4 (01/05/2020 19:58:QS system process) 57a. Induction of Labor: Augmentation (01/05/2020 19:58:Rosina Forbes MD) 57c. Non-Vertex Presentation A: Vertex (01/05/2020 19:58:COTY Love) 57d. Steroids - Lung Mat: None (01/05/2020 19:58:Mayte Sibley RN) 57d. Steroids - Lung Mat: Not Applicable (01/05/2020 19:58:Mayte Sibley RN) 57f. Mat [place] or Temp >100.4: 97.9 (01/05/2020 19:58:Mayte Sibley RN) 57g. Moderate/Heavy Meconium: Moderate Meconium (03/19/2020 19:59:COTY Love) : Prolonged Active Phase (01/05/2020 19:58:Rosina Forbes MD) 57i. Epidural/Spinal Anesthesia: Epidural (01/05/2020 19:58:Mayte Sibley RN) Method of Delivery 58a. Forceps - Unsuccessful A: N/A (01/05/2020 19:58:Mayte Sibley RN) 58b. Vacuum - Unsuccessful A: N/A (01/05/2020 19:58:Mayte Sibley RN) 58c. Presentation at 58c. Presentation at - A : Vertex (01/05/2020 19:58:COTY Love) 58c. Presentation at - A : N/A (01/05/2020 19:58:COTY Love) 58c. Presentation at - A : Cephalic (03/19/2020 17:41:Jenny Delacruz RN) Final Route and Method of Del 58d. Baby A Route/Delivery: Vaginal (01/05/2020 19:58:Mayte Sibley RN) 58e. Trial of Labor Attempted: No (01/05/2020 19:58:Mayte Sibley RN) 58e. Trial of Labor Attempted A: N/A (01/05/2020 19:58:Mayte Sibley RN) 58e. Trial of Labor Attempted B: N/A (01/05/2020 19:58:Mayte Sibley RN) Maternal Morbidity 59b. 3rd or 4th Degree Lacs: Perineal (01/05/2020 19:58:COTY Love) Birthweight Baby A: 3630 (01/05/2020 19:58:Nancy Bellavance, RNC) 60a. Pounds : 8 (01/05/2020 19:58:QS system process) 60b. Ounces: 0 (01/05/2020 19:58:QS system process) 61. GA at Delivery Baby A: 39.4 (01/05/2020 19:58:Mayte Sibley RN) : Full Term- 39- 40.6 Weeks (01/05/2020 19:58:QS system process) 62a. 5 Minute Baby A: 9 (01/05/2020 19:58:QS system process)
--- NOTE | 2020-03-20 02:36 | Delivery Summary ---
Del Sum A-C Datetime Report Generated by CPN: 03/20/2020 02:36 DELIVERY PERSONNEL DELIVERY PERSONNEL: [id number] Delivery Doctor:: Rosina Forbes MD Labor and Delivery Nurse:: OCTY Love Sail Repair Person/DISCHARGE PLANNER: Sherlyn Benjamin, ST MATERNAL INFORMATION Delivery Anesthesia: Epidural Medications After Delivery: Pitocin 30 Units in 500ml NS/D5W Estimated Blood Loss (ml): 150 Maternal Complications: None Provider Comments: Called to patients room as she was complete and +3 station. She pushed twice and delivered a viable female . After delivery of the head, the shoulders and rest of the body delivered easily. Cord clamping delayed for 30 seconds as infant was crying. Infant then passed of to RN for suctioning. Both mother and stable. Infant placed skin to skin with Mother. LABOR SUMMARY EDC: 03/22/2020 00:00 No. Babies in Womb: 1 Attempted: No Labor Anesthesia: Epidural LABOR INFORMATION Reason for Induction: Not Applicable Onset of Labor: 03/19/2020 19:59 Complete Dilatation: 03/19/2020 22:45 Oxytocin: Augmentation Group B Beta Strep: negative Antibiotics # of Doses: 0 Name of Antibiotic Given: n/a Steroids Given: None Reason Steroids Not Administered: Not Applicable MEMBRANES Membranes Rupture Method: Spontaneous Rupture of Membranes: 03/19/2020 19:59 Length of Rupture (hr): 3.92 Amniotic Fluid Color: Moderate Meconium Amniotic Fluid Amount: Small Amniotic Fluid Odor: Normal STAGES OF LABOR Stage 1 hr: 2 Stage 1 min: 46 Stage 2 hr: 1 Stage 2 min: 9 Stage 3 hr: 0 Stage 3 min: 6 Total Time in Labor hr: 4 Total Time in Labor min: 1 VAGINAL DELIVERY Episiotomy: None Laceration #1: Perineal Laceration Extension #1: Second Degree Laceration #2: Periurethral Laceration Extension #2: First Degree Laceration Repair: Yes Laceration Repair Note: Repaired second degree in layered closure with 2-0 chromic. No repair needed for 1st degree laceration: hemostatic Sponge Count Correct: Yes Sharps Count Correct: Yes CSECTION DELIVERY Secondary Indication: Prolonged Active Phase BABY A INFORMATION Delivery Date/Time: 03/19/2020 23:54 Method of Delivery: Vaginal Nurse Controlled Delivery: No Born in Route : No : N/A Forceps: N/A Vacuum Extraction: N/A Shoulder Dystocia : No PRESENTATION/POSITION BABY A Presentation: Cephalic Cephalic Presentation: Vertex Vertex Position: Left Occipital Anterior Breech Presentation: N/A PLACENTA INFORMATION BABY A Placenta Delivery Time : 03/20/2020 00:00 Placenta Method of Delivery: Spontaneous Placenta Status: Retained SCORES BABY A Heart Rate 1 min: >100 bpm Resp Effort 1 min: Good Cry Reflex Irritability 1 min: Cough or Sneeze or Pulls Away Muscle Tone 1 min: Some Flexion of Extremities Color 1 min: Blue/Pale Resuscitation Effort 1 min: Tactile Stimulation SCORE 1 MIN: 7 Heart Rate 5 min: >100 bpm Resp Effort 5 min: Good Cry Reflex Irritability 5 min: Cough or Sneeze or Pulls Away Muscle Tone 5 min: Active Motion Color 5 min: Body [place], Extremities Blue Resuscitation Effort 5 min: Tactile Stimulation SCORE 5 MIN: 9 INFORMATION BABY A Gestational Age at Delivery: 39.4 Gestational Status: Full Term- 39- 40.6 Weeks Outcome : Liveborn Condition : Stable Sex: Female IDENTIFICATION BABY A Verification Date/Time: 03/20/2020 00:53 ID Band Number: [id number] Mother's Name Verified: Yes RN Verifying : Florence Sibley, RN/ DMaury Olson, RN WEIGHT/LENGTH BABY A Infant Birthweight (gm): 3630 Infant Weight (lb): 8 Weight (oz): 0 Length (in): 20.25 Length (cm): 51.44 CORD INFORMATION BABY A No. Cord Vessels: 3 Nuchal Cord : N/A Cord Blood Taken: Yes-For Eval (Mom's Blood Type - or O+) Infant Suction: None ASSESSMENT BABY A Infant Complications: None Physical Findings at Delivery: Within Normal Limits Infant Respirations: Appears Normal Skin to Skin: Yes Skin to Skin Time (min): 60 Acting Manager/ALS Called : No Infant Care By: D Bellavance RN Transferred To: Remains with Mother BABY B INFORMATION : N/A SIGNATURES Signature: with User ID: Carmene : with User ID: [email or web address]
[2020-03-20] MEDS: IBUPROFEN 800 MG TABLET PO SCH ×4 (03:33→21:16)
[2020-03-20] MEDS: ACETAMINOPHEN WITH CODEINE #3 TABLET PO PRN ×3 (06:04→20:32)
[2020-03-20] MEDS: SENNOSIDES/DOCUSATE 8.6-50 MG 1 EACH TABLET PO SCH (09:53)
[2020-03-20] MEDS: PRENATAL VITAMIN W DHA CAPSULE PO SCH (09:54)
[2020-03-20] MEDS: DOCUSATE SODIUM 100 MG CAPSULE PO SCH ×2 (09:54→17:21)
[2020-03-20] MEDS: FAMOTIDINE 20 MG TABLET PO SCH ×2 (09:54→21:16)
[2020-03-20] MEDS: ESCITALOPRAM OXALATE 10 MG TABLET PO SCH (09:54)
[2020-03-20] MEDS: FERROUS SULFATE 325 MG TABLET PO SCH ×2 (09:54→17:21)
--- NOTE | 2020-03-20 11:12 | PDOC PROGRESS REPORT ---
Subjective-OB Progress Note for:: 03/20/20 Subjective: Pt doing well, no concerns. She reports light bleeding reg diet and voiding w/o difficulty. Physical Exam (OB) Vital Signs: Temp Pulse Resp BP Pulse Ox 97.9 F 94 16 127/70 H 100 03/20/20 08:05 03/20/20 08:05 03/20/20 08:05 03/20/20 08:05 03/20/20 08:05 Intake & Output 03/19/20 03/20/20 03/21/20 06:59 06:59 06:59 Intake Total 200 Balance 200 Weight 94.1 kg - Maternal Morbidity 59. Maternal Morbidity (serious complications experinced by the mother associated with labor and delivery: None of the above - Lochia Lochia Amount: Scant < 10 ml Lochia Color: Rubra/Red - Abdomen Description: Soft, Round Hernia Present: No Fundal Description: Firm, Midline Fundal Height: u/u - u/2 Objective-Diagnostic Laboratory: 03/19/20 18:16 03/19/20 03/19/20 03/19/20 17:55 18:16 18:16 WBC 11.4 H RBC 4.37 Hgb 12.3 Hct 36.6 MCV 84 MCH 28.1 MCHC 33.5 RDW 14.5 H Plt Count 263 Seg Neutrophils % 84.8 H Urine Color MARLY Urine Appearance CLOUDY Urine pH 6.0 Ur Specific [place] 1.024 Urine Protein 100 H Urine Glucose (UA) NEGATIVE Urine Ketones TRACE H Urine Blood LARGE H Urine Nitrite NEGATIVE Ur Leukocyte Esterase SMALL H Blood Type A POSITIVE Antibody Screen NEGATIVE Assessment and Plan(PN) - Assessment and Plan (1) Active labor at term Is this a current diagnosis for this admission?: Yes (2) Vaginal delivery Is this a current diagnosis for this admission?: Yes - Time Spent with Patient Time with patient: Less than 15 minutes Medications reviewed and adjusted accordingly: Yes - Disposition Anticipated Discharge Disposition: Home, Self Care Anticipated Discharge Timeframe: within 24 hours
[2020-03-21] MEDS: IBUPROFEN 800 MG TABLET PO SCH (05:41)
[2020-03-21 08:38] LABS: HEMATOCRIT 28.6 % (36.0-47.0); MEAN CORPUSCULAR HEMOGLOBIN 28.3 pg (27.0-33.4); MEAN CORPUSCULAR HGB CONC 33.6 g/dL (32.0-36.0); MEAN CORPUSCULAR VOLUME 84 fl (80-97); PLATELET COUNT 192 10^3/uL (150-450); RED BLOOD COUNT 3.39 10^6/uL (3.72-5.28); RED CELL DISTRIBUTION WIDTH 14.6 % (11.5-14.0); WHITE BLOOD COUNT 8.7 10^3/uL (4.0-10.5)
[2020-03-21 08:39] LABS: HEMOGLOBIN 9.6 g/dL (12.0-15.5)
[2020-03-21] MEDS: ESCITALOPRAM OXALATE 10 MG TABLET PO SCH (09:52)
[2020-03-21] MEDS: SENNOSIDES/DOCUSATE 8.6-50 MG 1 EACH TABLET PO SCH (09:52)
[2020-03-21] MEDS: DOCUSATE SODIUM 100 MG CAPSULE PO SCH (09:53)
[2020-03-21] MEDS: FERROUS SULFATE 325 MG TABLET PO SCH (09:53)
[2020-03-21] MEDS: PRENATAL VITAMIN W DHA CAPSULE PO SCH (09:53)
[2020-03-21] MEDS: FAMOTIDINE 20 MG TABLET PO SCH (09:53)
--- NOTE | 2020-03-21 11:07 | PDOC PROGRESS REPORT ---
Subjective-OB Progress Note for:: 03/21/20 Subjective: Doing well, ready to go home, breast feeding, small bleeding, eating and drinking well Physical Exam (OB) Vital Signs: Temp Pulse Resp BP Pulse Ox 98.0 F 73 16 115/49 L 100 03/21/20 07:30 03/21/20 07:30 03/21/20 07:30 03/21/20 07:30 03/21/20 07:30 Intake & Output 03/20/20 03/21/20 03/22/20 06:59 06:59 06:59 Intake Total 200 120 Balance 200 120 Weight 94.1 kg - PIH/Pre-Eclampsia Clonus: Negative Headache: Present Epigastric Pain: No Visual Changes: No - Maternal Morbidity 59. Maternal Morbidity (serious complications experinced by the mother associated with labor and delivery: None of the above - Lochia Lochia Amount: Scant < 10 ml Lochia Color: Rubra/Red - Abdomen Description: Tender, Soft Hernia Present: No Fundal Description: Firm, Midline Fundal Height: u/u - u/2 Objective-Diagnostic Laboratory: 03/21/20 07:43 03/21/20 07:43 WBC 8.7 RBC 3.39 L Hgb 9.6 L D Hct 28.6 L MCV 84 MCH 28.3 MCHC 33.6 RDW 14.6 H Plt Count 192 Assessment and Plan(PN) - Assessment and Plan (1) Anemia due to acute blood loss Is this a current diagnosis for this admission?: Yes (2) Active labor at term Is this a current diagnosis for this admission?: Yes (3) Vaginal delivery Is this a current diagnosis for this admission?: Yes - Time Spent with Patient Time with patient: Less than 15 minutes Medications reviewed and adjusted accordingly: Yes - Disposition Anticipated Discharge Disposition: Home, Self Care Anticipated Discharge Timeframe: within 24 hours
--- NOTE | 2020-03-21 11:12 | PDOC DISCHARGE SUMMARY ---
Impression - Admit/DC Date/PCP Admission Date/Primary Care Provider: 03/19/20 17:55 JESSE NORMAN MD Discharge Date: 03/21/20 - Discharge Diagnosis (1) Anemia due to acute blood loss Is this a current diagnosis for this admission?: Yes (2) Active labor at term Is this a current diagnosis for this admission?: Yes (3) Vaginal delivery Is this a current diagnosis for this admission?: Yes - Additional Information Resuscitation Status: Full Code Discharge Diet: As Tolerated, Regular Discharge Activity: Activity As Tolerated, Pelvic Rest Referrals: JESSE NORMAN MD [Primary Care Provider] - (rtc 4 weeks) Home Medications: Pnv 102/Iron/Folate 1/Dss/Dha [Vitafol Fe+ Docusate Combo Pck] 1 each PO DAILY 01/17/20 Escitalopram Oxalate [Lexapro 10 mg Tablet] 10 mg PO DAILY tablet 03/21/20 Ferrous Sulfate [Feosol 325 mg Tablet] 325 mg PO BID tablet 03/21/20 HPI Gestational Age: 39.4 Reason(s) for Admission: Onset of Labor Procedures: Ultrasound Intrapartum Procedure(s): Spontaneous Vaginal Delivery Intrapartum Procedure Note: prolonged active phase Complication(s): Laceration-Perineal, Laceration-Periurethral Laceration-Degree: 2nd Hospital Course Hospital Course: routine 59. Maternal Morbidity (serious complications experinced by the mother associated with labor and delivery: None of the above Results Laboratory Results: WBC 8.7 10^3/uL (4.0-10.5) 03/21/20 07:43 RBC 3.39 10^6/uL (3.72-5.28) L 03/21/20 07:43 Hgb 9.6 g/dL (12.0-15.5) L D 03/21/20 07:43 Hct 28.6 % (36.0-47.0) L 03/21/20 07:43 MCV 84 fl (80-97) 03/21/20 07:43 MCH 28.3 pg (27.0-33.4) 03/21/20 07:43 MCHC 33.6 g/dL (32.0-36.0) 03/21/20 07:43 RDW 14.6 % (11.5-14.0) H 03/21/20 07:43 Plt Count 192 10^3/uL (150-450) 03/21/20 07:43 Lymph % (Auto) 9.1 % (13-45) L 03/19/20 18:16 [place] % (Auto) 5.0 % (3-13) 03/19/20 18:16 Eos % (Auto) 0.5 % (0-6) 03/19/20 18:16 Baso % (Auto) 0.6 % (0-2) 03/19/20 18:16 Absolute Neuts (auto) 9.6 10^3/uL (1.7-8.2) H 03/19/20 18:16 Absolute Lymphs (auto) 1.0 10^3/uL (0.5-4.7) 03/19/20 18:16 Absolute Monos (auto) 0.6 10^3/uL (0.1-1.4) 03/19/20 18:16 Absolute Eos (auto) 0.1 10^3/uL (0.0-0.6) 03/19/20 18:16 Absolute Basos (auto) 0.1 10^3/uL (0.0-0.2) 03/19/20 18:16 Seg Neutrophils % 84.8 % (42-78) H 03/19/20 18:16 Urine Color MARLY 03/19/20 17:55 Urine Appearance CLOUDY 03/19/20 17:55 Urine pH 6.0 (5.0-9.0) 03/19/20 17:55 Ur Specific [place] 1.024 03/19/20 17:55 Urine Protein 100 mg/dL (NEGATIVE) H 03/19/20 17:55 Urine Glucose (UA) NEGATIVE mg/dL (NEGATIVE) 03/19/20 17:55 Urine Ketones TRACE mg/dL (NEGATIVE) H 03/19/20 17:55 Urine Blood LARGE (NEGATIVE) H 03/19/20 17:55 Urine Nitrite NEGATIVE (NEGATIVE) 03/19/20 17:55 Urine Bilirubin NEGATIVE (NEGATIVE) 03/19/20 17:55 Urine Urobilinogen 2.0 mg/dL (<2.0) H 03/19/20 17:55 Ur Leukocyte Esterase SMALL (NEGATIVE) H 03/19/20 17:55 Urine Ascorbic Acid NEGATIVE (NEGATIVE) 03/19/20 17:55 Urine Opiates Screen NEGATIVE 03/19/20 17:55 Urine Methadone Screen NEGATIVE 03/19/20 17:55 Ur Barbiturates Screen NEGATIVE 03/19/20 17:55 Ur Phencyclidine Scrn NEGATIVE 03/19/20 17:55 Ur Amphetamines Screen NEGATIVE 03/19/20 17:55 U Benzodiazepines Scrn NEGATIVE 03/19/20 17:55 Urine Cocaine Screen NEGATIVE 03/19/20 17:55 U Marijuana (THC) Screen NEGATIVE 03/19/20 17:55 Blood Type A POSITIVE 03/19/20 18:16 Antibody Screen NEGATIVE 03/19/20 18:16 Plan Health Concerns: routine Plan of Treatment: rev S&S to report, use dermaplast Goals: no complications Time Spent: Less than 30 Minutes
[2020-03-21 12:35] VITALS: BP 123/69
[2020-03-21] MEDS: ACETAMINOPHEN WITH CODEINE #3 TABLET PO PRN (12:42)
--- OUTSIDE RECORDS SUMMARY | 2020-03-21 14:43 | XMS REPORT ---
:1999 [facility] Address [facility] [place] [address] [place] [address] Care Team Providers Name Role Phone Unavailable [...] Range Comments BILIRUBIN, INDIRECT (test code = 98889451) 0.3 mg/dL (calc) 0.2- 1.1 BILIRUBIN, DIRECT (test code = 21115381) 0.1 mg/dL < OR = 0.2 PROTEIN, TOTAL (test code = 77210996) 6.7 g/dL 6.3-8.2 GLOBULIN (test code = 18280768) 2.4 g/dL (calc) 2.0-3.8 AST (test code = 59918683) 22 U/L 12-32 ALT (test code = 35629935) 34 U/L 5-32 ALBUMIN/GLOBULIN RATIO (test code = 75871217) 1.8 (calc) 1. 0-2.5 ALKALINE PHOSPHATASE (test code = 05699141) 47 U/L 47-1 76 ALBUMIN (test code = 77471775) 4.3 g/dL 3.6-5.1 BILIRUBIN, TOTAL (test code = 59413385) 0.4 mg/dL 0.2-1.1 CBC (INCLUDES DIFF/PLT)2019-02-01 14:40:00 Test Item Value Reference Range Comments ABSOLUTE NEUTROPHILS (test code 4253 cells/uL 3038-3011 = 44339641) NEUTROPHILS (test code = 68.6 % 96727654) EOSINOPHILS (test code = 1.8 % 88445849) HEMOGLOBIN (test code = 9.3 g/dL 11.7-15.5 53176576) ABSOLUTE LYMPHOCYTES (test code 1389 cells/uL 850-3900 = 97962430) LYMPHOCYTES (test code = 22.4 % 70719805) MCHC (test code = 49173689) 29.5 g/dL 32.0-36.0 WHITE BLOOD CELL COUNT (test 6.2 Thousand/uL 3.8-10.8 code = 31739901) MPV (test code = 63466715) 10.3 fL 7.5-12.5 COMMENT(S) (test code = Review of peripheral smear 29397312) confirms automated results. ABSOLUTE EOSINOPHILS (test code 112 cells/uL 15-500 = 11672669) MCV (test code = 15370419) 69.1 fL 80.0-100.0 PLATELET COUNT (test code = 380 Thousand/uL 140-400 04761742) ABSOLUTE BASOPHILS (test code = 68 cells/uL 0-200 12932714) ABSOLUTE MONOCYTES (test code = 378 cells/uL 200-950 81858605) HEMATOCRIT (test code = 31.5 % 35.0-45.0 93022486) MONOCYTES (test code = 6.1 % 00288790) RED BLOOD CELL COUNT (test code 4.56 Million/uL 3.80-5.10 = 48005444) MCH (test code = 93274180) 20.4 pg 27.0-33.0 BASOPHILS (test code = 1.1 % 68034982) RDW (test code = 90263760) 15.9 % 11.0-15.0 IRON, [id number] 14:40:[id number] 14:40:003COMPREHENSIVE METABOLIC [id number] 14:40:00 Test Item Value Reference Range Comments SODIUM (test code = 12406655) 138 mmol/L 135-146 POTASSIUM (test code = 22406208) 4.3 mmol/L 3.8-5.1 PROTEIN, TOTAL (test code = 28713770) 6.7 g/dL 6.3-8.2 GLOBULIN (test code = 31862075) 2.4 g/dL (calc) 2.0-3.8 AST (test code = 51759700) 22 U/L 12-32 eGFR NON-AFR. ALGERIAN (test code = 126 mL/min/1.73m2 > OR = 60 19767477) CHLORIDE (test code = 17726857) 107 mmol/L 98-110 eGFR (test code = 146 mL/min/1.73m2 > OR = 60 98815517) ALBUMIN/GLOBULIN RATIO (test code = 1.8 (calc) 1.0-2.5 13170225) ALT (test code = 51299536) 34 U/L 5-32 CARBON DIOXIDE (test code = 64011165) 23 mmol/L 20-32 CREATININE (test code = 27688473) 0.69 mg/dL 0.50-1.00 BUN/CREATININE RATIO (test code = NOT APPLICABLE (calc) 6-22 17334526) ALBUMIN (test code = 58102585) 4.3 g/dL 3.6-5.1 GLUCOSE (test code = 51607757) 94 mg/dL 65-99 CALCIUM (test code = 01600237) 9.3 mg/dL 8.9-10.4 ALKALINE PHOSPHATASE (test code = 47 U/L 47-176 49009731) UREA NITROGEN (BUN) (test code = 13 mg/dL 7-20 72511928) BILIRUBIN, TOTAL (test code = 0.4 mg/dL 0.2-1.1 85934096) Social History This patient has no known social history. Vital Signs This patient has no known vital signs.
== END 2020-03-21 13:10 | disposition home or self-care (01) | DRG 807 ==
LOC: LC 16:12 → LR 17:55 → 2S 03-20 03:07
PROVIDERS: ADMIT Obstetrics & Gynecology; ATTEND Obstetrics & Gynecology
PROC: 10E0XZZ Delivery of Products of Conception, External Approach (ICD-10-PCS; principal; 2020-03-19)
PROC: 0KQM0ZZ Repair Perineum Muscle, Open Approach (ICD-10-PCS; 2020-03-19)
PROC: 0UQMXZZ Repair Vulva, External Approach (ICD-10-PCS; 2020-03-19)
DX: O70.1 Second degree perineal laceration during delivery (principal); O77.0 Labor and delivery complicated by meconium in amniotic fluid; O71.82 Other specified trauma to perineum and vulva; Z37.0 Single live birth; Z3A.39 39 weeks gestation of pregnancy
CPT/HCPCS: 1967; 36415; 80307; 81005; 85025; 85027; 86850; 86900; 86901; J2300; J2405; J2590; J2795; J3010; J3490

== ENCOUNTER → 2020-03-19 | Outpatient (CLI) | payer OTHER ==
[2020-03-19 11:47] LABS: APPEARANCE,URINE CLOUDY; BILIRUBIN,URINE NEGATIVE (NEGATIVE); COLOR,URINE YELLOW; GLUCOSE, URINE NEGATIVE (NEGATIVE); KETONES,URINE NEGATIVE (NEGATIVE); LEUKOCYTE ESTERASE,URINE MODERATE (NEGATIVE); NITRITE,URINE NEGATIVE (NEGATIVE); PROTEIN,URINE 30 mg/dL (NEGATIVE); URINE SPECIFIC GRAVITY 1.017
[2020-03-19 12:09] LABS: URINE AMPHETAMINES SCREEN NEGATIVE; URINE BARBITURATES SCREEN NEGATIVE; URINE BENZODIAZEPINES SCREEN NEGATIVE; URINE COCAINE SCREEN NEGATIVE; URINE MARIJUANA (THC) SCREEN NEGATIVE; URINE METHADONE SCREEN NEGATIVE; URINE PHENCYCLIDINE SCREEN NEGATIVE
--- NOTE | 2020-03-19 13:00 | Non Stress Test Report ---
Non Stress Test Datetime Report Generated by CPN: 03/19/2020 12:59 DEMOGRAPHIC EGA NST: 39.4 VITAL SIGNS Temperature - NST: 98.0 Pulse - NST: 107 RESP - NST: 18 NBPSYS NST: 112 NBPDIA NST: 60 MONITORING Monitor Explained: Monitor Explained; Test Explained Time on Monitor: 03/19/2020 11:07 Time off Monitor: 03/19/2020 12:14 NST Duration: 67 NST INTERVENTIONS NST Interventions: PO Hydration Physician Notified NST: C Siddiqui CNM BABY A: [id number] BABY A Movement : Present; Decreased Contraction Frequency : occasional FHR Baseline : 130 Accelerations : 15X15 Decelerations : None Variability : Moderate 6-25bpm NST Review: Meets Criteria for Reactive NST NST Review and Verified By : Kristi Patel RNC NST Results: Reactive NST REPORT Report Trigger: Send Report
--- OUTSIDE RECORDS SUMMARY | 2020-03-20 18:30 | XMS REPORT ---
:2000 [facility] Address [facility] [place] [address] [place] [address] Care Team Providers Name Role Phone Unavailable Unavailable Unavailable Allergies, Adverse Reactions, Alerts This patient has no known allergies or adverse reactions. Medications This patient has no known medications. Problems This patient has no known problems. Procedures This patient has no known procedures. Results Test Description Test Time Test Comments Text Results Atomic Results Result Comments TSH 2019-02-01 14:40:00 3.06 HEPATIC FUNCTION PANEL 2019-02-01 14:40:00 Test Item Value Reference Range Comments BILIRUBIN, INDIRECT (test code = 94898365) 0.3 mg/dL (calc) 0.2- 1.1 BILIRUBIN, DIRECT (test code = 63506849) 0.1 mg/dL < OR = 0.2 PROTEIN, TOTAL (test code = 95185579) 6.7 g/dL 6.3-8.2 GLOBULIN (test code = 20101716) 2.4 g/dL (calc) 2.0-3.8 AST (test code = 98729008) 22 U/L 12-32 ALT (test code = 43735438) 34 U/L 5-32 ALBUMIN/GLOBULIN RATIO (test code = 15481897) 1.8 (calc) 1. 0-2.5 ALKALINE PHOSPHATASE (test code = 22381651) 47 U/L 47-1 76 ALBUMIN (test code = 03783887) 4.3 g/dL 3.6-5.1 BILIRUBIN, TOTAL (test code = 18268687) 0.4 mg/dL 0.2-1.1 CBC (INCLUDES DIFF/PLT)2019-02-01 14:40:00 Test Item Value Reference Range Comments ABSOLUTE NEUTROPHILS (test code 4253 cells/uL 9090-0002 = 11600363) NEUTROPHILS (test code = 68.6 % 32072483) EOSINOPHILS (test code = 1.8 % 50153680) HEMOGLOBIN (test code = 9.3 g/dL 11.7-15.5 64437052) ABSOLUTE LYMPHOCYTES (test code 1389 cells/uL 850-3900 = 74692966) LYMPHOCYTES (test code = 22.4 % 32933546) MCHC (test code = 26318279) 29.5 g/dL 32.0-36.0 WHITE BLOOD CELL COUNT (test 6.2 Thousand/uL 3.8-10.8 code = 58818607) MPV (test code = 55035728) 10.3 fL 7.5-12.5 COMMENT(S) (test code = Review of peripheral smear 02739823) confirms automated results. ABSOLUTE EOSINOPHILS (test code 112 cells/uL 15-500 = 94101070) MCV (test code = 12202089) 69.1 fL 80.0-100.0 PLATELET COUNT (test code = 380 Thousand/uL 140-400 41526519) ABSOLUTE BASOPHILS (test code = 68 cells/uL 0-200 64780014) ABSOLUTE MONOCYTES (test code = 378 cells/uL 200-950 06844213) HEMATOCRIT (test code = 31.5 % 35.0-45.0 93207020) MONOCYTES (test code = 6.1 % 27876851) RED BLOOD CELL COUNT (test code 4.56 Million/uL 3.80-5.10 = 03188472) MCH (test code = 78767049) 20.4 pg 27.0-33.0 BASOPHILS (test code = 1.1 % 20735746) RDW (test code = 08313969) 15.9 % 11.0-15.0 IRON, [id number] 14:40:[id number] 14:40:003COMPREHENSIVE METABOLIC [id number] 14:40:00 Test Item Value Reference Range Comments SODIUM (test code = 03269277) 138 mmol/L 135-146 POTASSIUM (test code = 82992430) 4.3 mmol/L 3.8-5.1 PROTEIN, TOTAL (test code = 94813498) 6.7 g/dL 6.3-8.2 GLOBULIN (test code = 39326814) 2.4 g/dL (calc) 2.0-3.8 AST (test code = 25676894) 22 U/L 12-32 eGFR NON-AFR. ENGLISH (test code = 126 mL/min/1.73m2 > OR = 60 59334420) CHLORIDE (test code = 36255000) 107 mmol/L 98-110 eGFR (test code = 146 mL/min/1.73m2 > OR = 60 03655060) ALBUMIN/GLOBULIN RATIO (test code = 1.8 (calc) 1.0-2.5 68084162) ALT (test code = 67206443) 34 U/L 5-32 CARBON DIOXIDE (test code = 86124213) 23 mmol/L 20-32 CREATININE (test code = 65792565) 0.69 mg/dL 0.50-1.00 BUN/CREATININE RATIO (test code = NOT APPLICABLE (calc) 6-22 88630203) ALBUMIN (test code = 10258953) 4.3 g/dL 3.6-5.1 GLUCOSE (test code = 33179487) 94 mg/dL 65-99 CALCIUM (test code = 73487102) 9.3 mg/dL 8.9-10.4 ALKALINE PHOSPHATASE (test code = 47 U/L 47-176 68297701) UREA NITROGEN (BUN) (test code = 13 mg/dL 7-20 45134045) BILIRUBIN, TOTAL (test code = 0.4 mg/dL 0.2-1.1 60829357) Social History This patient has no known social history. Vital Signs This patient has no known vital signs.
== END ==
LOC: LC 10:54
PROVIDERS: ATTEND Obstetrics & Gynecology
DX: O36.8130 Decreased fetal movements, third trimester, not applicable or unspecified (principal); Z3A.39 39 weeks gestation of pregnancy
CPT/HCPCS: 59025; 80307; 81005

== ENCOUNTER → 2020-04-29 | Outpatient (CLI) | payer OTHER ==
--- NOTE | 2020-04-29 11:41 | ER [facility] ASSESSMENT REPORT ---
Intake - In the Last 14 days Have you traveled outside [place]?: No Have you been in close contact with someone CONFIRMED: No Worked in Healthcare?: No - Symptoms Subjective Fever([place] feverish): No Chills: No Muscule Aches: No Runny Nose: No Sore Throat: Yes Cough (New or worsening chronic cough): No Shortness of breath: No Nausea or Vomiting: No Headache: Yes Abdominal Pain: No Diarrhea(3 or more loose stools in last 24 hours): Yes - Do you have any of the following Chronic lung disease: Asthma or emphysema or COPD: No Cystic Fibrosis: No Diabetes: No High Blood Pressure: No Cardiovascular Disease: No Chronic Kidney Disease: No Chronic Liver Disease: No Chronic blood disorder like Sickle Cell Disease: No Weak immune system due to disease or medication: No Neurologic condition that limits movement: No Developmental delay - Moderate to Severe: No Recent (within past 2 weeks) or current : No Morbid Obesity (>100 pounds over ideal weight): No - Objective Temperature: 98.8 F Pulse Rate: 89 Respiratory Rate: 17 Blood Pressure: 108/62 O2 Sat by Pulse Oximetry: 100 Objective: Given above, testing performed: If Testing Performed: Test Specimen Type Sent to General - General Information source: Patient Notes: Patient presents to the [facility] for screening for the coronavirus. Patient reports having symptoms for the past day including sore throat headache and diarrhea. - Related Data Allergies/Adverse Reactions: No Known Allergies Allergy (Verified 03/19/20 11:04) Past Medical History - General Information source: Patient - Social History Smoking Status: Never Smoker Family History: Reviewed & Not Pertinent, Other - Anemia Psychiatric Medical History: Reports: Hx Anxiety, Hx Depression Surgical Hx: Negative Physical Exam - Notes Notes: The patient was evaluated during the global Covid 19 pandemic, and that diagnosis was suspected/considered upon their initial presentation. Their evaluation and testing was consistent with current guidelines for patients who present with complaints or symptoms that may be related to Covid 19. Full physical exam could not be performed due to covid 19 isolation protocols. Constitutional: Nontoxic appearance, no acute distress Eyes: Nonicteric, extraocular movements intact, sclera clear ENT: posterior pharynx clear without exudate Cardiovascular: Heart rate and rhythm regular Respiratory: Breath sounds clear bilaterally, nonlabored breathing, no use of accessory muscles, no tachypnea Gastrointestinal: Abdomen not distended Muculoskeletal: Moves all extremities well Skin: Normal color Neuro: Awake alert oriented, normal speech Psych: Normal mood and affect Diagnostic Results Laboratory Results: Patient presents with symptoms worrisome for possible Covid 19. Patient does not have emergency worrying symptoms such as difficulty breathing, shortness of breath, chest pain, pressure, confusion or cyanosis. Patient appears suitable for discharge as they are not of an advanced age, do not have any chronic medical conditions such as diabetes, CAD, immune deficiency, chronic lung disease or chronic kidney disease. Patient's vital signs are stable and patient is nontoxic in appearance. Good return precautions have been discussed with patient, patient verbalized understanding and is agreeable with discharge plan of care at this time. Patient Education/Counseling Counseling/Education: Patient was provided with discharge information including: As a person under investigation for Covid 19, the [place] department of Health and Human Services, division of public health advises you to adhere to the following guidance until your test results are reported to you. If your test result is positive, you will receive additional information from your provider and your local health department at that time. Remain at home until you are cleared by the health provider or public health authorities. Keep a log of visitors to your home, notify any visitors to your home of your isolation status. If you plan to move to a new address or leave the [facility], notify the local health department in your County. Call your doctor or seek care if you have an urgent medical need. Before seeking medical care, call ahead to get instructions from the provider before arriving at the medical office clinic or hospital. Notify them that you are being tested for the virus that causes Covid 19 so that arrangements can be made, as necessary, to prevent transmission to others in the healthcare setting. Next, notify the local health department in your county. If a medical emergency arises and you need to call 911, inform the first responders that you are being tested for the virus that causes Covid 19. Next, notify the local health department in your county. [facility] Discharge - Discharge Clinical Impression: Encounter for screening laboratory testing for COVID-19 virus Condition: Stable Disposition: Home; Selfcare
[2020-04-29 12:05] VITALS: BP 108/62
[2020-04-29 13:55] LABS: A TYPE INFLUENZA AG NEGATIVE (NEGATIVE); B INFLUENZA AG NEGATIVE (NEGATIVE)
== END ==
LOC: RDC 11:20
PROVIDERS: ATTEND Nurse Practitioner Family
DX: Z20.828 Contact with and (suspected) exposure to other viral communicable diseases (principal); J02.9 Acute pharyngitis, unspecified; R51.9 Headache, unspecified; R19.7 Diarrhea, unspecified; Z86.59 Personal history of other mental and behavioral disorders
CPT/HCPCS: 87070; 87880; 87635; 87804; C9803